=== PATIENT | male | born 1965 | race Caucasian/White ===

== ENCOUNTER 2017-06-23 19:00 | Emergency (ER) | payer OTHER ==
[~2017-06-23] VITALS: Ht 177.8 cm; Wt 131.5 kg
[2017-06-23 19:16] VITALS: BP_SYST 165
[2017-06-23] MEDS ORDERED: cloNIDine HCL 0.1 MG TABLET PO ONE (20:30)
[2017-06-23 21:57] VITALS: BP_SYST 182
== END 2017-06-23 21:57 | disposition home or self-care (01) ==
LOC: SED 19:00
DX: H60.91 Unspecified otitis externa, right ear (principal); I10 Essential (primary) hypertension
CPT/HCPCS: 99283